=== PATIENT | female | born 1935 | race Hispanic/Latino ===

== ENCOUNTER 2023-04-29 10:06 | Emergency (ER) | payer OTHER, MEDICARE ==
[~2023-04-29] VITALS: Ht 144.8 cm; Wt 61.2 kg
[2023-04-29] MEDS: LACTATED RINGERS 1000ML 1,000 ML IV ONE (10:34)
[2023-04-29] MEDS: ONDANSETRON 4MG INJ IVP ONE (10:34)
[2023-04-29] MEDS: FAMOTIDINE 20MG VIAL IV ONE (10:34)
[2023-04-29] MEDS: MORPHINE 2 MG SYG IVP ONE ×2 (10:35→13:24)
[2023-04-29 10:38] LABS: BASOPHILS # (AUTO) 0.03 K/uL (0.00-0.20); BASOPHILS % (AUTO) 0.5 % (0.0-5.0); EOSINOPHILS # (AUTO) 0.06 K/uL (0.00-0.70); EOSINOPHILS % (AUTO) 0.9 % (0.0-8.0); HEMATOCRIT 32.9 % (36-48); IMMATURE GRANULOCYTE ABSOLUTE 0.02 K/uL (0-1); LYMPHOCYTES # (AUTO) 1.6 K/uL (1.0-4.8); LYMPHOCYTES % (AUTO) 25.4 % (21.0-51.0); MEAN CORPUSCULAR HEMOGLOBIN 31.3 pg (27.0-33.0); MEAN CORPUSCULAR HGB CONC 34.3 g/dL (32.0-36.0); MEAN CORPUSCULAR VOLUME 91.1 fL (79-99); MONOCYTES # (AUTO) 0.5 K/uL (0.1-1.0); MONOCYTES % (AUTO) 8.5 % (3.0-13.0); NEUTROPHILS # (AUTO) 4.1 K/uL (1.8-7.7); NEUTROPHILS % (AUTO) 64.4 % (40.0-77.0); PLATELET COUNT (AUTO) 183 K/uL (130-400); RED BLOOD CELL COUNT(AUTO) 3.61 MIL/uL (4.00-5.50); RED CELL DISTRIBUTION WIDTH 11.8 % (11.0-15.5); WHITE BLOOD COUNT (AUTO) 6.4 K/uL (4.8-10.8)
[2023-04-29 10:51] LABS: ALBUMIN 3.8 g/dL (3.5-5.0); BILIRUBIN,TOTAL 0.4 mg/dL (0.2-1.0); CREATININE 1.2 mg/dL (0.5-1.5); POTASSIUM 3.7 mmol/L (3.5-5.1); TOTAL PROTEIN, SERUM 7.9 g/dL (6.0-8.3)
[2023-04-29] MEDS ORDERED: IOHEXOL 350 MG/ML 100ML INFUS..BTL IV ONE (11:15)
[2023-04-29 12:32] LABS: APPEARANCE,URINE CLEAR (CLEAR); BILIRUBIN,URINE NEGATIVE (NEGATIVE); COLOR,URINE COLORLESS (YELLOW); GLUCOSE, URINE (UA) NEGATIVE (NEGATIVE); KETONES,URINE NEGATIVE (NEGATIVE); LEUKOCYTE ESTERASE ,URINE NEGATIVE Leu/uL (NEGATIVE); NITRATE,URINE NEGATIVE (NEGATIVE); OCCULT BLOOD,URINE NEGATIVE (NEGATIVE); PROTEIN,URINE NEGATIVE (NEGATIVE); UROBILINOGEN,URINE 0.2 mg/dL (0.2-1.0)
[2023-04-29 12:33] LABS: ADD UA MICROSCOPIC NO
[2023-04-29] MEDS ORDERED: MELO-106 PO (14:22)
[2023-04-29] MEDS ORDERED: NALO4SPR NS (14:22)
[2023-04-29] MEDS ORDERED: ACET-2079 PO (14:22)
[2023-04-29 14:23] VITALS: BP 144/68; PULSE 88; RESP 16; O2SAT 98
== END 2023-04-29 15:03 | disposition home or self-care (01) ==
LOC: EDH 10:06
DX: R10.9 Unspecified abdominal pain (principal); M25.552 Pain in left hip; M19.90 Unspecified osteoarthritis, unspecified site
CPT/HCPCS: 99285; 74177; 96374; 71045; 96375; 96361; 84484; 80053; 83690; 85025; 81003; 36415; 73552; 96376; 93005; J7120; J3490; J2270 ×2; J2405; Q9967

== ENCOUNTER 2023-09-12 17:11 | Emergency (ER) | payer OTHER, MEDICARE ==
[~2023-09-12] VITALS: Ht 149.9 cm; Wt 57.2 kg
[~2023-09-12 17:11] MED LIST: ACET-2079 PO; CYCL-309 PO; CYCL30DR OU; ERYT1OIN7 OU; LIDOP TP; MELO-106 PO; NALO4SPR NS; NEO/5DRO7 OU; PRED-775 PO; PRIM50TA23 PO; TRAM50TA4 PO
[2023-09-12] MEDS: ONDANSETRON 4MG INJ IVP ONE (18:27)
[2023-09-12] MEDS: MORPHINE 2 MG SYG IVP ONE (18:27)
[2023-09-12 19:20] VITALS: O2SAT 97
[2023-09-12 20:06] VITALS: BP 122/55; PULSE 83; RESP 18
== END 2023-09-12 20:07 | disposition home or self-care (01) ==
LOC: EDH 17:11
DX: S80.01XA Contusion of right knee, initial encounter (principal); M25.551 Pain in right hip; M19.90 Unspecified osteoarthritis, unspecified site; M81.0 Age-related osteoporosis without current pathological fracture; Z79.899 Other long term (current) drug therapy; Z98.890 Other specified postprocedural states; W18.39XA Other fall on same level, initial encounter; Y93.89 Activity, other specified; Y92.89 Other specified places as the place of occurrence of the external cause; Y99.8 Other external cause status
CPT/HCPCS: 99284; 73502; 73552; 73564; 96374; 96375; 29505; J2270; J2405